=== PATIENT | female | born 1960 | race Caucasian/White ===

== ENCOUNTER 2016-12-21 13:34 | Outpatient (CLI) | payer BC ==
--- NOTE | 2016-12-21 15:23 | BD ---
BONE DENSITOMETRY USING DEXA: Date: 12/21/16 HISTORY: Postmenopausal screening for osteoporosis. FINDINGS: Lumbar Spine: BMD (g/cm2) L1 0.701 T-Score: -2.6 Z-Score: -1.5 L2 0.711 T-Score: -2.9 Z-Score: -1.6 L3 0.766 T-Score: -2.9 Z-Score: -1.6 L4 0.828 T-Score: -2.1 Z-Score: -0.7 L1-L4 0.756 T-Score: -2.6 Z-Score: -1.3 Femoral Neck: 0.616 T-Score: -2.1 Z-Score: -0.9 Total Femur: 0.807 T-Score: -1.1 Z-Score: -0.2 IMPRESSION: Osteoporosis. POS: [facility]
--- NOTE | 2016-12-21 16:34 | MMO ---
BILATERAL MAMMOGRAMS: DATE: 12/21/16 HISTORY: Screening mammography. COMPARISON: 06/25/13 and 08/04/15. FINDINGS: Heterogeneously dense fibroglandular tissue and benign-appearing calcifications are again demonstrat ed. No dominant mass or suspicious calcifications. The study was evaluated with the assistance of computer-aided detection. IMPRESSION: BIRADS 1: Negative Suggest routine follow-up. POS: [facility]
== END 2016-12-21 13:35 | disposition home or self-care (01) ==
LOC: MAMMO 13:34
PROVIDERS: ATTEND Family Medicine
DX: Z12.31 Encounter for screening mammogram for malignant neoplasm of breast (principal); Z13.820 Encounter for screening for osteoporosis; M81.0 Age-related osteoporosis without current pathological fracture
CPT/HCPCS: 77067; 77080; G0202

== ENCOUNTER 2018-01-03 07:56 | Outpatient (CLI) | payer BC | END 2018-01-03 07:57 | disposition home or self-care (01) | LOC: BICMAMMO 07:56 | PROVIDERS: ATTEND Family Medicine | DX: Z12.31 Encounter for screening mammogram for malignant neoplasm of breast (principal); R92.1 Mammographic calcification found on diagnostic imaging of breast; Z80.3 Family history of malignant neoplasm of breast | CPT/HCPCS: 77063; 77067 ==

== ENCOUNTER 2019-02-01 13:22 | Outpatient (CLI) | payer BC ==
--- NOTE | 2019-02-01 14:18 | RAD ---
RIGHT TOE RADIOGRAPHS 3 VIEWS: DATE: 02/01/2019. PROVIDED CLINICAL HISTORY: First digit pain and swelling. FINDINGS: There is severe degenerative arthrosis of the 1st MTP joint. Alignment appears anatomic. Joint spac es appear otherwise preserved. No evidence for fracture or other acute osseous abnormality. 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 POS: [facility]
== END 2019-02-01 13:23 | disposition home or self-care (01) ==
LOC: BICRAD 13:22
PROVIDERS: ATTEND Podiatrist
DX: M19.90 Unspecified osteoarthritis, unspecified site (principal); M20.5X1 Other deformities of toe(s) (acquired), right foot; M19.071 Primary osteoarthritis, right ankle and foot

== ENCOUNTER 2021-02-06 08:01 | Outpatient (CLI) | payer BC | END 2021-02-06 08:02 | disposition home or self-care (01) | LOC: BICMAMMO 08:01 | PROVIDERS: ATTEND Family Medicine | DX: Z12.31 Encounter for screening mammogram for malignant neoplasm of breast (principal); Z80.3 Family history of malignant neoplasm of breast | CPT/HCPCS: 77063; 77067 ==

== ENCOUNTER 2022-02-09 08:21 | Outpatient (CLI) | payer BC | END 2022-02-09 08:22 | disposition home or self-care (01) | LOC: BICMAMMO 08:21 | PROVIDERS: ATTEND Family Medicine | DX: Z12.31 Encounter for screening mammogram for malignant neoplasm of breast (principal); Z80.3 Family history of malignant neoplasm of breast | CPT/HCPCS: 77063; 77067 ==

== ENCOUNTER 2023-03-08 08:35 | Outpatient (CLI) | payer OTHER | END 2023-03-08 08:36 | disposition home or self-care (01) | LOC: BICMAMMO 08:35 | PROVIDERS: ATTEND Family Medicine | DX: Z12.31 Encounter for screening mammogram for malignant neoplasm of breast (principal); Z80.3 Family history of malignant neoplasm of breast | CPT/HCPCS: 77063; 77067 ==

== ENCOUNTER 2024-03-16 09:17 | Outpatient (CLI) | payer MEDICARE, OTHER | END 2024-03-16 09:18 | disposition home or self-care (01) | LOC: BICMAMMO 09:17 | PROVIDERS: ATTEND Family Medicine | DX: Z12.31 Encounter for screening mammogram for malignant neoplasm of breast (principal); Z80.3 Family history of malignant neoplasm of breast | CPT/HCPCS: 77063; 77067 ==